=== PATIENT | male | born 1950 | race Caucasian/White ===

== ENCOUNTER 2020-09-09 23:21 | Observation (INO) ==
[2020-09-10] MEDS ORDERED: Diltiazem IV push/loading dose 5 MG/ML 5 ML vial (25 mg) IV SLOW PU ONE ×2 (00:14→00:25)
[2020-09-10 00:23] LABS: ABS Eosinophils 0.2 10^3/ul (0-0.6); ABS Monocytes 0.8 10^3/ul (0-0.8); ABS Neutrophils 2.5 10^3/ul (1.5-7.7); Eosinophil % 2.8 %; Hematocrit 43 % (42-52); Hemoglobin 14.5 g/dL (14.0-18.0); Lymphocyte % 36.8 %; Mean Corpuscular HGB Conc 34 g/dL (31-36); Mean Corpuscular Hemoglobin 32 pg (27-31); Mean Corpuscular Volume 96 fL (80-94); Platelet Count 214 10^3/uL (150-450); Red Blood Count 4.51 10^6 /uL (4.18-5.48); Red Cell Distribution Width 15 % (10-15); White Blood Count 5.5 10^3/uL (3.5-10.8)
[2020-09-10 00:41] LABS: Albumin 4.2 g/dL (3.2-5.2); Albumin/Globulin Ratio 1.5 (1-3); Calcium 9.1 mg/dL (8.6-10.3); EGFR African American 82.9 (>60); EGFR Non-African American 68.5 (>60); Globulin 2.8 g/dL (2-4); Total Bilirubin 0.4 mg/dL (0.2-1.0)
[2020-09-10] MEDS ORDERED: NS 0.9% 500 ml BAG 500 ML IV ONE (00:46)
[2020-09-10] MEDS ORDERED: Diltiazem (ADVAN VIAL) 100 MG/100 ML ADDV.BAG IV SCH ×2 (01:00→05:00)
[2020-09-10 01:02] LABS: INR 0.97 (0.82-1.09)
[2020-09-10] MEDS ORDERED: Enoxaparin 80 MG/0.8 ML SYR SUBCUT SCH ×2 (04:00→06:00)
[2020-09-10 04:20] LABS: Magnesium 2.2 mg/dL (1.9-2.7)
[2020-09-10] MEDS ORDERED: Fluticasone NASAL SPRAY 50MCG 16 gm SPRAY BTL INTRANASAL SCH (09:00)
[2020-09-10] MEDS ORDERED: NS 0.9% 500 ml BAG 500 ML IV SCH (10:00)
[2020-09-10] MEDS ORDERED: Naloxone 0.4 mg VIAL 0.4 mg/ml 1 ml VIAL ONE (14:01)
[2020-09-10] MEDS ORDERED: Flumazenil 0.5 mg/5 ml 0.1 MG/ML 5 ml VIAL ONE (14:01)
[2020-09-10] MEDS ORDERED: Midazolam 5 mg/5 ml VIAL 1 mg/ml 5 ml VIAL (5 mg) ONE (14:01)
[2020-09-10] MEDS ORDERED: fentaNYL 100 mcg/2 ml 50 MCG/ML VIAL ONE (14:01)
[2020-09-10 18:03] VITALS: BP 96/62
== END 2020-09-10 17:57 | disposition home or self-care (01) ==
LOC: MEDTELE 23:21 → ED 23:21 → MEDTELE 09-10 05:49
PROVIDERS: ADMIT Internal Medicine; ATTEND Internal Medicine

== ENCOUNTER 2023-03-29 08:30 | Inpatient (IN) ==
[2023-03-29 10:25] LABS: Calcium 8.4 mg/dL (8.6-10.3); Creatinine, Serum 0.88 mg/dL (0.67-1.17); Potassium 3.9 mmol/L (3.5-5.0); eGFR CKD-EPI 91.9 (>60)
[2023-03-29] MEDS ORDERED: Carbidopa/Levodop CR 50/200 TAB.CR PO SCH (21:00)
[2023-03-30] MEDS: Carbidopa/Levodop 25/100 MG TAB PO SCH ×3 (09:20→17:33)
[2023-03-30 10:57] LABS: Calcium 8.6 mg/dL (8.6-10.3); Creatinine, Serum 0.91 mg/dL (0.67-1.17); Potassium 4.4 mmol/L (3.5-5.0); eGFR CKD-EPI 90.1 (>60)
[2023-03-30 13:47] VITALS: BP 104/62
== END 2023-03-30 17:42 | disposition home or self-care (01) | DRG 310 ==
LOC: MEDTELE → OBSVTOIN 08:48
PROVIDERS: ADMIT Specialist; ATTEND Specialist